=== PATIENT | female | born 1975 | race Caucasian/White ===

== ENCOUNTER 2017-07-14 19:31 | Emergency (ER) | payer BC ==
[~2017-07-14] VITALS: Ht 162.6 cm; Wt 85.7 kg
[~2017-07-14 19:31] MED LIST: ATIVAN1 MG PO; IBUPROFEN600 MG PO; LEVOTHYROXINE25 MCG PO; LOVASTATIN10 MG PO; NAPROXEN500 MG PO; NORCO 5-325 TA1 EACH PO; XANAX0.5 MG PO
[2017-07-14] MEDS ORDERED: VENTOLIN HFA18 GM INH (19:45)
[2017-07-14] MEDS ORDERED: ZITHROMAX250 MG PO (19:45)
[2017-07-14] MEDS ORDERED: NORCO 5-325 TA1 EACH PO (20:01)
== END 2017-07-14 20:12 | disposition home or self-care (01) ==
LOC: ED 19:31
DX: S90.32XA Contusion of left foot, initial encounter (principal); W22.8XXA Striking against or struck by other objects, initial encounter; Z88.5 Allergy status to narcotic agent; Z79.2 Long term (current) use of antibiotics; Z79.899 Other long term (current) drug therapy
CPT/HCPCS: 73630; 99283

== ENCOUNTER 2022-03-24 22:02 | Emergency (ER) | payer BC, OTHER ==
[~2022-03-24] VITALS: Ht 162.6 cm; Wt 99.8 kg
[~2022-03-24 22:02] MED LIST changes: +CALCOR TABLET1 EACH PO; +DICLOFENAC SODI75 MG PO; +EC MATRIXX TAB1 EACH PO; +HYDROCODON-ACE1 EA11 PO; +ICAPS AREDS2 C1 EACH PO; +LOVASTATIN20 MG PO; +MAGNESIUM CITR100 MG PO; +NEPHRONEX900 MCG/5 PO; +OSTEOBLOX CF C1 EACH PO; +VENTOLIN HFA18 GM INH; +VITAMIN C250 M1 PO; +ZITHROMAX250 MG PO
--- OUTSIDE RECORDS SUMMARY | 2022-03-24 22:04 | XMS ---
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 E.D. VISIT COUNT (12 MO.) 1 EWA [place] TOTAL 1 NOTE: Visits indicate total known visits. ED/UCC VISIT TRACKING (12 MO.) 03/24/2022 22:02 [facility] [place] TYPE: Emergency COMPLAINT: - MEDICATION REACTION INPATIENT VISIT TRACKING (12 MO.) No inpatient visits to display in this time frame [email or web address]
--- NOTE | 2022-03-25 13:11 | EKG ---
[facility] [address] [facility] [place] [address] Signed Normal sinus rhythm Normal ECG When compared with ECG of 30-NOV-2016 04:50, No significant change was found Confirmed by KALA SANCHEZ MD ([id number]) on 03/25/2022 1:11:25 PM Electronically Signed By: KALA SANCHEZ MD 03/25/22 1311 PATIENT NAME: JOSE CAMPOSMiya Electrocardiogram DATE OF : 75 PHYSICIAN: KALA SANCHEZ MD REPORT #: [id number] REPORT IS CONFIDENTIAL AND NOT TO BE RELEASED WITHOUT AUTHORIZATION
== END 2022-03-24 23:00 | disposition home or self-care (01) ==
LOC: ED 22:02
DX: R00.2 Palpitations (principal); E78.00 Pure hypercholesterolemia, unspecified; Z88.5 Allergy status to narcotic agent; Z79.899 Other long term (current) drug therapy
CPT/HCPCS: 93005; 93010; 99283-25

== ENCOUNTER 2023-08-26 05:50 | Day surgery (SDC) | payer BC ==
[~2023-08-26] VITALS: Ht 162.6 cm; Wt 100.0 kg
[~2023-08-26 05:50] MED LIST changes: +CALCIUM500 MG PO; +DICYCLOMINE HCL20 MG PO; +XANAX1 MG PO
[2023-08-26 06:08] VITALS: BP 126/67
--- NOTE | 2023-08-26 07:24 | NUR ---
ROUNDS. PT EXPRESSED CONFIDENCE IN CARE; MINIMAL ANXIETY. PROVIDED HOSPITALITY; PROVIDED PRAYER.
--- NOTE | 2023-08-26 08:01 | NUR ---
08/26/23 0801 Lakesha Valladares PT TO PACU AWAKE AND ALERT DENIES PAIN AND NAUSEA
[2023-08-26 08:15] VITALS: BP 112/74
--- NOTE | 2023-08-27 10:03 | OR ---
[facility] [address] [place], [place] [address] Signed DATE OF OPERATION: 08/26/2023 SURGEON: Leonardo Martinez MD PREOPERATIVE DIAGNOSIS: Colon screening. POSTOPERATIVE DIAGNOSIS: Normal colon to cecum. PROCEDURE: Total colonoscopy to cecum. ANESTHESIA: Intravenous sedation; fentanyl 100 mcg, Versed 6 mg. INDICATION: This 47-year-old white woman is a patient of ETHAN Cortes. She is referred for screening colonoscopy based on her age. She has no symptoms of bleeding, diarrhea, or constipation and no family history of colon cancer. She understands the risk of colonoscopy including but not limited to bleeding, infection, and perforation and wished to proceed. FINDINGS: The prep was excellent. Complete colonoscopy was undertaken to the cecum without question. She had no polyps, diverticular formation, colitis, or cancer. DESCRIPTION OF PROCEDURE: The patient was brought to the endoscopy suite and placed in the lateral decubitus position, given intravenous sedation to the point of slurred speech and nystagmus with full cardiopulmonary monitoring. Digital rectal examination was normal. An Olympus video colonoscope was passed in the rectum and manipulated throughout the colon ultimately intubating the cecum itself. The ileocecal valve and appendiceal orifice were normal. The scope was withdrawn from that point and examination throughout showed no sign of polyps, diverticular formation, colitis, or cancer. Retroflexed view was normal as well. The scope was removed and the patient was taken to the recovery room in good condition. CONCLUDING DIAGNOSIS: Electronically Signed By: LEONARDO MARTINEZ MD 08/27/23 1003 PATIENT NAME: JOSE CAMPOS OPERATIVE REPORT DATE OF : 75 REPORT #: [id number] PHYSICIAN: LEONARDO MARTINEZ MD PCP: MELISSA TAPIA PA-C REPORT IS CONFIDENTIAL AND NOT TO BE RELEASED WITHOUT AUTHORIZATION [facility] [address] [place] [address] [place], [place] [address] Signed Normal colon to cecum. PLAN: Would recommend repeat colonoscopy in 10 years, sooner if clinically indicated. She will return to the ongoing care of Melissa Tapia. MD SCAR Soto/MODL /[id number] cc: Melissa Tapia PA-C Copies: MELISSA TAPIA PA-C ~ Electronically Signed By: LEONARDO MARTINEZ MD 08/27/23 1003 PATIENT NAME: JOSE CAMPOS OPERATIVE REPORT DATE OF : 75 REPORT #: [id number] PHYSICIAN: LEONARDO MARTINEZ MD PCP: MELISSA TAPIA PA-C REPORT IS CONFIDENTIAL AND NOT TO BE RELEASED WITHOUT AUTHORIZATION
== END 2023-08-26 08:25 | disposition home or self-care (01) ==
LOC: OPS 05:50 → DS 05:50 → OPS 07:30 → DS 07:30 → OPS 08:25
PROVIDERS: ATTEND Surgery
PROC: 0DJD8ZZ Inspection of Lower Intestinal Tract, Via Natural or Artificial Opening Endoscopic (ICD-10-PCS; principal; 2023-08-26 07:30)
DX: Z12.11 Encounter for screening for malignant neoplasm of colon (principal); E03.9 Hypothyroidism, unspecified; E66.9 Obesity, unspecified; E78.5 Hyperlipidemia, unspecified; Z68.37 Body mass index [BMI] 37.0-37.9, adult; Z90.49 Acquired absence of other specified parts of digestive tract; Z98.51 Tubal ligation status
CPT/HCPCS: 84703; 99153; G0500; J2250; J3010; J7121

== ENCOUNTER 2024-11-16 16:36 | Emergency (ER) | payer BC ==
[~2024-11-16] VITALS: Ht 162.6 cm; Wt 103.3 kg
[~2024-11-16 16:36] MED LIST changes: -LOVASTATIN20 MG PO; +LOVASTATIN40 MG PO
[2024-11-16] MEDS ORDERED: ondansetron HCL 4 MG/2 ML VIAL IV ONE ×2 (17:15→17:30)
[2024-11-16 17:20] LABS: BASOPHILS 0.5 % (0-2); EOSINOPHILS 3.2 % (0-6); HEMATOCRIT 40.6 % (35.0-50.0); HEMOGLOBIN 13.8 g/dL (12.0-18.0); LYMPHOCYTES 32.9 % (24-44); MCH 28.9 (27-36); MCHC 33.9 g/dl (30-36); MCV 85.2 fl (81-99); NEUTROPHILS 57.4 % (39-80); PLATELET COUNT 462 K/uL (140-440); RBC 4.77 M/ul (4.3-5.7); RDW 13.5 (10.5-15.0)
[2024-11-16] MEDS ORDERED: SODIUM CHLORIDE 0.9% 1,000 ML IV PRN (17:30)
[2024-11-16] MEDS ORDERED: HYDROmorphone HCL 1 MG/ML SYR IV PRN (17:30)
[2024-11-16 17:38] LABS: ALBUMIN/GLOBULIN RATIO 0.95 (1.1-2.4); ANION GAP 12.7 (7-21); BILIRUBIN, TOTAL 0.3 mg/dL (0.2-1.0); BUN/CREATININE RATIO 15.47 (6.0-28.6); CALCIUM 9.7 mg/dL (8.5-10.1); CREATININE, SERUM 0.84 mg/dL (0.55-1.02); POTASSIUM 3.7 mmol/L (3.5-5.1); PROTEIN, TOTAL 8.2 g/dL (6.4-8.2)
[2024-11-16 19:06] LABS: BILIRUBIN, URINE NEGATIVE (negative); BLOOD/HGB, URINE TRACE-I (Negative); KETONE, URINE NEGATIVE (Negative); LEUK ESTERASE, URINE NEGATIVE (negative); NITRITE, URINE NEGATIVE (negative)
[2024-11-16 19:16] LABS: EPITHELIAL CELLS, URINE SQUAMOUS 2+ /lpf (0-1+)
[2024-11-16 19:17] LABS: RED BLOOD CELLS, URINE 0-1 /hpf (0-5)
[2024-11-16 19:18] LABS: BACTERIA, URINE 1+ /hpf (negative); CASTS, URINE NONE SEEN \\lpf; COLLECTION TYPE, URINE CLEAN CATCH; CRYSTALS, URINE NONE SEEN (0-1+); REFLEX CULTURE, URINE No (No); WHITE BLOOD CELLS, URINE 0-1 /HPF (0-5)
[2024-11-16 20:07] VITALS: BP 129/78
--- NOTE | 2024-11-17 19:13 | EKG ---
[facility] [address] [facility] [place], [place] [address] Signed Normal sinus rhythm Normal ECG No previous ECGs available Confirmed by Giles Najera MD ([id number]) on 11/17/2024 7:13:06 PM Electronically Signed By: GILES NAJERA MD 11/17/241912 PATIENT NAME: JOSE CAMPOS Electrocardiogram DATE OF : 75 PHYSICIAN: GILES NAJERA MD REPORT #: [id number] REPORT IS CONFIDENTIAL AND NOT TO BE RELEASED WITHOUT AUTHORIZATION
== END 2024-11-16 20:10 | disposition home or self-care (01) ==
LOC: ED 16:36
PROVIDERS: Emergency Medicine
DX: R10.13 Epigastric pain (principal); R10.11 Right upper quadrant pain; Z88.0 Allergy status to penicillin; Z88.5 Allergy status to narcotic agent; Z79.890 Hormone replacement therapy; Z79.899 Other long term (current) drug therapy
CPT/HCPCS: 36415; 74177; 80053; 81001; 83690; 84703; 85025; 93005; 93010; 99284-25; Q9967

== ENCOUNTER 2025-03-05 12:19 | Emergency (ER) | payer BC ==
[~2025-03-05] VITALS: Ht 162.6 cm; Wt 100.0 kg
[2025-03-05] MEDS ORDERED: OZEMPIC2 MG/0.75 SQ (12:40)
[2025-03-05] MEDS ORDERED: IBLOOD GLUCOSE TEST STRIP 1 EA TEST XX ONE (12:45)
[2025-03-05] MEDS ORDERED: SODIUM CHLORIDE 0.9% 1,000 ML IV PRN (13:00)
[2025-03-05 13:02] LABS: BASOPHILS 0.5 % (0.1-1.2); EOSINOPHILS 2.4 % (0.7-5.8); LYMPHOCYTES 25.7 % (19.3-51.7); MCH 29.4 PG (25.6-32.2); MCHC 33.1 g/dL (32.2-35.5); MCV 88.9 fL (79.4-94.8); MONOCYTES 5.8 % (4.7-12.5); NEUTROPHILS 65.4 % (34.0-71.1); RBC 4.32 M/uL (3.93-5.22)
[2025-03-05 13:17] LABS: ALT (SGPT) 44.0 U/L (14-59); AST (SGOT) 26.0 U/L (15-37); GLOMERULAR FILTRATION RATE,EST 89.0 mL/min (>60); PROTEIN, TOTAL 7.7 g/dL (6.4-8.2); UREA NITROGEN 10.0 mg/dL (7-18)
[2025-03-05 15:15] VITALS: BP 135/79
--- NOTE | 2025-03-05 23:32 | EKG ---
[facility] [address] [facility] [place] [address] Signed Normal sinus rhythm Normal ECG When compared with ECG of 16-NOV-2024 16:58, No significant change was found Confirmed by Pedro Jackson MD () on 03/05/2025 11:32:06 PM Electronically Signed By: PEDRO JACKSON MD 03/05/25 233 PATIENT NAME: JOSE CAMPOS CALLI Electrocardiogram DATE OF : 75 PHYSICIAN: PEDRO JACKSON MD REPORT #: [id number] REPORT IS CONFIDENTIAL AND NOT TO BE RELEASED WITHOUT AUTHORIZATION
== END 2025-03-05 15:15 | disposition home or self-care (01) ==
LOC: ED 12:19
PROVIDERS: Emergency Medicine
DX: R42 Dizziness and giddiness (principal); Z88.0 Allergy status to penicillin; Z88.5 Allergy status to narcotic agent; Z79.899 Other long term (current) drug therapy
CPT/HCPCS: 36415; 80053; 83735; 84484; 85025; 85379; 93005; 93010; 99285; J7030

== ENCOUNTER 2025-04-21 01:06 | Emergency (ER) | payer BC ==
[~2025-04-21] VITALS: Ht 162.6 cm; Wt 100.0 kg
[~2025-04-21 01:06] MED LIST changes: +OZEMPIC2 MG/0.75 SQ
[2025-04-21] MEDS ORDERED: KETOROLAC TROMETHAMINE 30 MG/ML VIAL IV ONE (01:15)
[2025-04-21] MEDS ORDERED: diazePAM 10 MG/2 ML SYR IV ONE ×2 (01:15→02:00)
[2025-04-21] MEDS ORDERED: HYDROmorphone HCL 1 MG/ML SYR IV ONE ×2 (01:15→02:00)
[2025-04-21] MEDS ORDERED: methylPREDNISolone 4 MG HOME.PACK PO ONE (02:30)
[2025-04-21] MEDS ORDERED: HYDROCODONE BIT/ACETAMINOPHEN 5/325 MG 1 TAB HOME.PACK PO ONE (02:30)
[2025-04-21] MEDS ORDERED: LIDOCAINE HCL 4% 1 EACH PATCH TD ONE (02:30)
[2025-04-21] MEDS ORDERED: GABAPENTIN 100 MG CAP PO ONE (02:30)
[2025-04-21] MEDS ORDERED: LIDODERM1 EACH TOP (02:32)
[2025-04-21] MEDS ORDERED: HYDROCODON-ACE1 EA10 PO (02:32)
[2025-04-21] MEDS ORDERED: GABAPENTIN100 MG PO (02:32)
[2025-04-21 02:48] VITALS: BP 135/78
== END 2025-04-21 02:48 | disposition home or self-care (01) ==
LOC: ED 01:06
DX: M62.830 Muscle spasm of back (principal); E03.9 Hypothyroidism, unspecified; E78.00 Pure hypercholesterolemia, unspecified; Z79.899 Other long term (current) drug therapy; Z88.0 Allergy status to penicillin; Z88.5 Allergy status to narcotic agent
CPT/HCPCS: 72080; 96374; 96375; 96376; 99283-25; A9270; J1171; J1885; J2405; J2919; J3360